=== PATIENT | female | born 1980 | race Caucasian/White ===

== ENCOUNTER → 2017-08-09 | Outpatient (REF) ==
[~2017-08-09] MED LIST: BENADRYL25 M2 PO; BEYAZ1 TAB PO; CEFTIN500 MG PO; FLINTSTONES1 CTB; GENTLE EXPRESSI1 CRE TP; GLUCOPHAGE1000 MG PO; HEALTH CARE AMERI50% TP; MOTRIN 600600 MG/TAB PO; NO HOME MEDICATIONS; PERCOCET 325 MG1 TA2 PO; SENOKOT S 50 MG1 TAB PO; SYNTHROID0.025 MG PO; ZOFRAN ODT4 MG PO
[2017-08-09 19:03] LABS: THYROID STIMULATING HORMONE 3.48 uIU/mL (0.465-4.680)
== END ==
LOC: ZLAB.WCH 18:07
PROVIDERS: Family Medicine
DX: Z01.89 Encounter for other specified special examinations (principal)